=== PATIENT | female | born 1950 | race Hispanic/Latino ===

== ENCOUNTER 2017-03-17 15:14 | Inpatient (IN) | payer MEDICARE ==
[~2017-03-17] VITALS: Ht 152.4 cm; Wt 129.3 kg
[~2017-03-17 15:14] MED LIST: AMLO10TA2 PO; GLIM2TAB3 PO; LORA-705 PO; METH250T11 PO; METO50TA18 PO; MU-V1TAB28 PO; PANT40TA25 PO; PROM5SYR PO; SIME80TA12 PO; SITA1TAB2 PO
[2017-03-17 15:47] LABS: ABG BASE EXCESS 3.1 mmol/L (-2.0-3.0); ABG HCO3 34.9 mmol/L (21.0-28.0); ABG OXYGEN SATURATION 87.6 % (95.0-99.0); ABG PCO2 94 mmHg (32-45)
[2017-03-17] MEDS ORDERED: AZITHROMYCIN 500MG+NS 250ML 250 ML IV ONE (15:54)
[2017-03-17] MEDS ORDERED: CEFTRIAXONE SODIUM 1 GM ONE (15:55)
[2017-03-17 15:57] LABS: BASOPHILS % (AUTO) 0.3 % (0.0-5.0); EOSINOPHILS % (AUTO) 1.3 % (0.0-8.0); HEMATOCRIT 42.7 % (36-48); LYMPHOCYTES % (AUTO) 9.3 % (21.0-51.0); MEAN CORPUSCULAR HEMOGLOBIN 29.2 pg (27.0-33.0); MEAN CORPUSCULAR HGB CONC 32.2 g/dL (32.0-36.0); MEAN CORPUSCULAR VOLUME 90.7 fL (79-99); MONOCYTES % (AUTO) 7.5 % (3.0-13.0); NEUTROPHILS % (AUTO) 81.6 % (40.0-77.0); NUCLEATED RED BLOOD CELLS 0.1 % (0.0-0.19); PLATELET COUNT (AUTO) 310 K/uL (130-400); RED BLOOD CELL COUNT(AUTO) 4.71 MIL/uL (4.00-5.50); WHITE BLOOD COUNT (AUTO) 13.6 K/uL (4.8-10.8)
[2017-03-17] MEDS ORDERED: IPRATROPIUM/ALBUTEROL SULFATE 3 ML SOLUTION IH ONE (16:05)
[2017-03-17 16:14] LABS: CREATININE 0.9 mg/dL (0.5-1.5); POTASSIUM 5.2 mmol/L (3.5-5.1)
[2017-03-17 16:41] LABS: ALBUMIN 3.2 g/dL (3.5-5.0); BILIRUBIN,TOTAL 0.3 mg/dL (0.2-1.0); CREATINE KINASE MB 3.6 ng/mL (0.5-3.6); TOTAL PROTEIN, SERUM 8.7 g/dL (6.0-8.3)
[2017-03-17 16:53] LABS: ABG BASE EXCESS 0.8 mmol/L (-2.0-3.0); ABG OXYGEN SATURATION 91.3 % (95.0-99.0); ABG PCO2 88 mmHg (32-45)
[2017-03-17] MEDS ORDERED: IOPAMIDOL-370 75 ML VIAL IV ONE (18:52)
[2017-03-18] MEDS ORDERED: CEFTRIAXONE 1GM/D5W 50ML 50 ML IV SCH (01:45)
[2017-03-18] MEDS ORDERED: HYDRALAZINE HCL 20 MG/ML VIAL IV PRN (01:45)
[2017-03-18 03:06] LABS: BILIRUBIN,URINE Negative (NEGATIVE); COLOR,URINE Yellow (YELLOW); GLUCOSE, URINE (UA) Negative (NEGATIVE); KETONES,URINE Negative (NEGATIVE); LEUKOCYTE ESTERASE ,URINE Negative (NEGATIVE); NITRATE,URINE Negative (NEGATIVE); OCCULT BLOOD,URINE Negative (NEGATIVE); PROTEIN,URINE Trace (NEGATIVE)
[2017-03-18 03:21] LABS: APPEARANCE,URINE CLEAR (CLEAR)
[2017-03-18 03:30] LABS: AMORPHOUS SEDIMENT,UR Rare /LPF (None Seen); BACTERIA,URINE None Seen /HPF (None Seen); RBC,URINE None Seen /HPF (0-1); SQUAMOUS EPITHELIAL CELL,UR Rare /LPF (0-2); WBC,URINE None Seen /HPF (0-1)
[2017-03-18 04:22] LABS: ABG BASE EXCESS 4.6 mmol/L (-2.0-3.0); ABG HCO3 36.9 mmol/L (21.0-28.0); ABG OXYGEN SATURATION 88.6 % (95.0-99.0); ABG PCO2 101 mmHg (32-45)
[2017-03-18] MEDS ORDERED: FUROSEMIDE 10 MG/ML 4ML VIAL ONE (05:07)
[2017-03-18] MEDS ORDERED: IPRATROPIUM/ALBUTEROL SULFATE 3 ML SOLUTION IH ONE ×2 (06:03→12:05)
[2017-03-18] MEDS: IPRATROPIUM/ALBUTEROL SULFATE 3 ML SOLUTION IH SCH ×3 (06:18→19:42)
[2017-03-18 07:33] LABS: HEMATOCRIT 40.9 % (36-48); MEAN CORPUSCULAR HGB CONC 31.9 g/dL (32.0-36.0); NUCLEATED RED BLOOD CELLS 0.1 % (0.0-0.19); PLATELET COUNT (AUTO) 278 K/uL (130-400); RED BLOOD CELL COUNT(AUTO) 4.49 MIL/uL (4.00-5.50); RED CELL DISTRIBUTION WIDTH 15.1 % (11.0-15.5); WHITE BLOOD COUNT (AUTO) 12.8 K/uL (4.8-10.8)
[2017-03-18 07:45] LABS: CREATININE 0.7 mg/dL (0.5-1.5); MAGNESIUM 1.5 mg/dL (1.80-2.40); POTASSIUM 5.2 mmol/L (3.5-5.1)
[2017-03-18 08:15] LABS: B-TYPE NATRIURETIC PEPTIDE 227 pg/mL (0-100)
[2017-03-18] MEDS ORDERED: ENOXAPARIN SODIUM 40 MG/0.4 ML SYRINGE SQ ONE (10:46)
[2017-03-18] MEDS ORDERED: FAMOTIDINE/PF 20 MG/2 ML VIAL IV ONE (10:47)
[2017-03-18 11:55] LABS: ABG HCO3 39.1 mmol/L (21.0-28.0); ABG OXYGEN SATURATION 88.4 % (95.0-99.0); ABG PCO2 81 mmHg (32-45)
[2017-03-18 16:00] VITALS: BP 162/83
[2017-03-18] MEDS: AZITHROMYCIN 500MG+NS 250ML 250 ML IV SCH ×2 (17:01→21:27)
[2017-03-18] MEDS: FUROSEMIDE 10 MG/ML 4ML VIAL IVP SCH ×2 (17:02→21:29)
[2017-03-18] MEDS: FUROSEMIDE 10 MG/ML 4ML VIAL IV SCH (17:02)
[2017-03-18] MEDS: ENOXAPARIN SODIUM 40 MG/0.4 ML SYRINGE SQ SCH (17:02)
[2017-03-18] MEDS: FAMOTIDINE/PF 20 MG/2 ML VIAL IV SCH ×2 (17:02→21:29)
[2017-03-18] MEDS ORDERED: HYDR12.530 PO (17:23)
[2017-03-18] MEDS ORDERED: OMEP40CA37 PO (17:23)
[2017-03-18] MEDS ORDERED: ASPI-555 PO (17:23)
[2017-03-18] MEDS ORDERED: LINA1TAB5 PO (17:23)
[2017-03-18] MEDS ORDERED: ROSU10TA35 PO (17:23)
[2017-03-18] MEDS ORDERED: CALC-911 PO (17:23)
[2017-03-18] MEDS ORDERED: LISI-617 PO (17:23)
[2017-03-18] MEDS ORDERED: GLIM2TAB3 PO (17:23)
[2017-03-18] MEDS ORDERED: MELO-106 PO (17:23)
[2017-03-18] MEDS ORDERED: CHOL200012 PO (17:23)
[2017-03-18] MEDS ORDERED: LORA10TA7 PO (17:23)
[2017-03-18] MEDS: METHYLPREDNISOLONE SOD SUCC 40MG/ML 1ML IVP SCH (17:40)
[2017-03-18 19:00] VITALS: BP 132/66
[2017-03-18] MEDS: INSULIN R PO SS1 SQ SCH (20:33)
[2017-03-18] MEDS ORDERED: SODIUM CHLORIDE 0.9% 250 ML IV ONE (21:00)
[2017-03-18] MEDS: CEFTRIAXONE SODIUM 1 GM IVP SCH (21:27)
[2017-03-18 23:00] VITALS: BP 129/60
[2017-03-19] MEDS: METHYLPREDNISOLONE SOD SUCC 40MG/ML 1ML IVP SCH ×3 (00:48→16:56)
[2017-03-19] MEDS: IPRATROPIUM/ALBUTEROL SULFATE 3 ML SOLUTION IH SCH ×4 (01:04→18:33)
[2017-03-19 03:00] VITALS: BP 128/72
[2017-03-19 04:20] LABS: ABG BASE EXCESS 7.2 mmol/L (-2.0-3.0); ABG OXYGEN SATURATION 92.6 % (95.0-99.0); ABG PCO2 70 mmHg (32-45)
[2017-03-19] MEDS: FUROSEMIDE 10 MG/ML 4ML VIAL IV SCH (05:15)
[2017-03-19] MEDS: INSULIN R PO SS1 SQ SCH ×4 (06:16→21:56)
[2017-03-19 07:43] VITALS: BP 134/65
[2017-03-19] MEDS: FUROSEMIDE 10 MG/ML 4ML VIAL IVP SCH ×2 (09:48→22:02)
[2017-03-19] MEDS: ENOXAPARIN SODIUM 40 MG/0.4 ML SYRINGE SQ SCH (09:48)
[2017-03-19] MEDS: FAMOTIDINE/PF 20 MG/2 ML VIAL IV SCH ×2 (09:48→22:00)
[2017-03-19] MEDS ORDERED: DIPHENHYDRAMINE HCL 25 MG CAPSULE PO PRN (11:15)
[2017-03-19 11:39] VITALS: BP 143/71
[2017-03-19] MEDS: ONDANSETRON HCL 4 MG/2 ML VIAL IV PRN (14:01)
[2017-03-19] MEDS ORDERED: GUAIFENESIN 600 MG TABLET.ER PO SCH (14:45)
[2017-03-19] MEDS: GUAIFENESIN SUGAR-FREE 100 MG/5 ML UDCUP PO PRN (15:42)
[2017-03-19 16:29] VITALS: BP 147/63
[2017-03-19 19:00] VITALS: BP 174/73
[2017-03-19] MEDS: CEFTRIAXONE SODIUM 1 GM IVP SCH (22:03)
[2017-03-19] MEDS: AZITHROMYCIN 500MG+NS 250ML 250 ML IV SCH (22:09)
[2017-03-19 23:00] VITALS: BP 154/65
[2017-03-20] MEDS: METHYLPREDNISOLONE SOD SUCC 40MG/ML 1ML IVP SCH ×3 (00:36→16:33)
[2017-03-20] MEDS: IPRATROPIUM/ALBUTEROL SULFATE 3 ML SOLUTION IH SCH ×5 (00:49→23:03)
[2017-03-20 03:00] VITALS: BP 152/69
[2017-03-20 04:02] LABS: BASOPHILS % (AUTO) 0.2 % (0.0-5.0); HEMATOCRIT 42.1 % (36-48); MEAN CORPUSCULAR HGB CONC 32.3 g/dL (32.0-36.0); MEAN CORPUSCULAR VOLUME 90.1 fL (79-99); MONOCYTES % (AUTO) 2.7 % (3.0-13.0); NEUTROPHILS % (AUTO) 95.1 % (40.0-77.0); PLATELET COUNT (AUTO) 332 K/uL (130-400); RED BLOOD CELL COUNT(AUTO) 4.68 MIL/uL (4.00-5.50); RED CELL DISTRIBUTION WIDTH 14.8 % (11.0-15.5); WHITE BLOOD COUNT (AUTO) 11.2 K/uL (4.8-10.8)
[2017-03-20 04:27] LABS: CREATININE 0.8 mg/dL (0.5-1.5); POTASSIUM 4.2 mmol/L (3.5-5.1)
[2017-03-20] MEDS: FUROSEMIDE 10 MG/ML 4ML VIAL IV SCH (05:15)
[2017-03-20] MEDS: INSULIN R PO SS1 SQ SCH ×4 (06:25→22:30)
[2017-03-20 07:00] VITALS: BP 145/70
[2017-03-20] MEDS: FUROSEMIDE 10 MG/ML 4ML VIAL IVP SCH ×2 (07:49→21:25)
[2017-03-20] MEDS: ONDANSETRON HCL 4 MG/2 ML VIAL IV PRN ×2 (07:49→21:37)
[2017-03-20] MEDS: FAMOTIDINE/PF 20 MG/2 ML VIAL IV SCH ×2 (07:49→21:25)
[2017-03-20] MEDS: ENOXAPARIN SODIUM 40 MG/0.4 ML SYRINGE SQ SCH (07:53)
[2017-03-20 08:22] LABS: ABG BASE EXCESS 20.6 mmol/L (-2.0-3.0); ABG HCO3 50.9 mmol/L (21.0-28.0); ABG OXYGEN SATURATION 91.6 % (95.0-99.0); ABG PCO2 84 mmHg (32-45)
[2017-03-20] MEDS: GUAIFENESIN SUGAR-FREE 100 MG/5 ML UDCUP PO PRN (09:44)
[2017-03-20 11:00] VITALS: BP 126/60
[2017-03-20] MEDS ORDERED: LORATADINE 10 MG TABLET PO PRN (14:30)
[2017-03-20] MEDS ORDERED: MELOXICAM 7.5 MG TABLET PO PRN (14:30)
[2017-03-20] MEDS: GLIMEPIRIDE 2 MG TABLET PO SCH (16:33)
[2017-03-20 16:38] VITALS: BP 129/65
[2017-03-20 19:20] VITALS: BP 139/66
[2017-03-20] MEDS: CEFTRIAXONE SODIUM 1 GM IVP SCH (21:24)
[2017-03-20] MEDS: METOPROLOL TARTRATE 50 MG TAB PO SCH (21:25)
[2017-03-20] MEDS: AZITHROMYCIN 500MG+NS 250ML 250 ML IV SCH (21:27)
[2017-03-21] VITALS (7 sets, daily range): BP systolic 104–135; BP diastolic 49–69
[2017-03-21] MEDS: METHYLPREDNISOLONE SOD SUCC 40MG/ML 1ML IVP SCH ×2 (01:11→07:59)
[2017-03-21] MEDS: FUROSEMIDE 10 MG/ML 4ML VIAL IV SCH ×2 (05:14→21:13)
[2017-03-21] MEDS: IPRATROPIUM/ALBUTEROL SULFATE 3 ML SOLUTION IH SCH ×4 (06:03→23:27)
[2017-03-21] MEDS: INSULIN R PO SS1 SQ SCH ×4 (06:04→21:06)
[2017-03-21] MEDS: ENOXAPARIN SODIUM 40 MG/0.4 ML SYRINGE SQ SCH (07:59)
[2017-03-21] MEDS: PANTOPRAZOLE SODIUM 40 MG TABLET.DR PO SCH (07:59)
[2017-03-21] MEDS: FUROSEMIDE 10 MG/ML 4ML VIAL IVP SCH ×2 (07:59→21:00)
[2017-03-21] MEDS: LISINOPRIL 5 MG TABLET PO SCH (07:59)
[2017-03-21] MEDS: HYDROCHLOROTHIAZIDE 25 MG TABLET PO SCH (07:59)
[2017-03-21] MEDS: ATORVASTATIN CALCIUM 10 MG TABLET PO SCH (07:59)
[2017-03-21] MEDS: ASPIRIN 81 MG EC TAB PO SCH (07:59)
[2017-03-21] MEDS: AMLODIPINE BESYLATE 5 MG TAB PO SCH (08:00)
[2017-03-21] MEDS: METOPROLOL TARTRATE 50 MG TAB PO SCH ×2 (08:00→21:03)
[2017-03-21] MEDS: GLIMEPIRIDE 2 MG TABLET PO SCH ×3 (08:00→16:33)
[2017-03-21] MEDS: FAMOTIDINE/PF 20 MG/2 ML VIAL IV SCH ×2 (08:00→21:00)
[2017-03-21] MEDS: CEFTRIAXONE SODIUM 1 GM IVP SCH (20:59)
[2017-03-21] MEDS: AZITHROMYCIN 500MG+NS 250ML 250 ML IV SCH (21:03)
[2017-03-22 03:21] VITALS: BP 111/59
[2017-03-22 03:42] LABS: HEMATOCRIT 43.2 % (36-48); MEAN CORPUSCULAR HEMOGLOBIN 28.6 pg (27.0-33.0); MEAN CORPUSCULAR HGB CONC 32.1 g/dL (32.0-36.0); MEAN CORPUSCULAR VOLUME 89.2 fL (79-99); PLATELET COUNT (AUTO) 312 K/uL (130-400); RED BLOOD CELL COUNT(AUTO) 4.84 MIL/uL (4.00-5.50); RED CELL DISTRIBUTION WIDTH 14.5 % (11.0-15.5); WHITE BLOOD COUNT (AUTO) 13.1 K/uL (4.8-10.8)
[2017-03-22] MEDS: INSULIN R PO SS1 SQ SCH ×4 (05:51→20:47)
[2017-03-22] MEDS: IPRATROPIUM/ALBUTEROL SULFATE 3 ML SOLUTION IH SCH ×3 (05:54→17:52)
[2017-03-22 07:30] VITALS: BP 122/65
[2017-03-22] MEDS: LISINOPRIL 5 MG TABLET PO SCH (07:50)
[2017-03-22] MEDS: AMLODIPINE BESYLATE 5 MG TAB PO SCH (07:50)
[2017-03-22] MEDS: METOPROLOL TARTRATE 50 MG TAB PO SCH ×2 (07:50→20:28)
[2017-03-22] MEDS: ASPIRIN 81 MG EC TAB PO SCH (07:51)
[2017-03-22] MEDS: HYDROCHLOROTHIAZIDE 25 MG TABLET PO SCH (07:51)
[2017-03-22] MEDS: PANTOPRAZOLE SODIUM 40 MG TABLET.DR PO SCH (07:51)
[2017-03-22] MEDS: GLIMEPIRIDE 2 MG TABLET PO SCH ×3 (07:51→16:44)
[2017-03-22] MEDS: ATORVASTATIN CALCIUM 10 MG TABLET PO SCH (07:51)
[2017-03-22] MEDS: METHYLPREDNISOLONE SOD SUCC 40MG/ML 1ML IVP SCH (07:52)
[2017-03-22] MEDS: FUROSEMIDE 10 MG/ML 4ML VIAL IVP SCH ×2 (07:53→20:28)
[2017-03-22] MEDS: ENOXAPARIN SODIUM 40 MG/0.4 ML SYRINGE SQ SCH (07:54)
[2017-03-22] MEDS: FAMOTIDINE/PF 20 MG/2 ML VIAL IV SCH ×2 (07:54→20:28)
[2017-03-22 11:22] VITALS: BP 113/71
[2017-03-22 15:57] VITALS: BP 126/80
[2017-03-22 19:15] VITALS: BP 127/55
[2017-03-22] MEDS: CEFTRIAXONE SODIUM 1 GM IVP SCH (20:27)
[2017-03-22] MEDS: FUROSEMIDE 10 MG/ML 4ML VIAL IV SCH (20:28)
[2017-03-22] MEDS: APIXABAN 5 MG TABLET PO SCH (20:28)
[2017-03-22] MEDS: AZITHROMYCIN 500MG+NS 250ML 250 ML IV SCH (20:42)
[2017-03-22 23:15] VITALS: BP 124/61
[2017-03-23] MEDS: IPRATROPIUM/ALBUTEROL SULFATE 3 ML SOLUTION IH SCH ×4 (00:34→18:34)
[2017-03-23 03:31] VITALS: BP 120/71
[2017-03-23] MEDS: INSULIN R PO SS1 SQ SCH ×3 (06:40→17:11)
[2017-03-23 08:11] VITALS: BP 130/60
[2017-03-23] MEDS: FAMOTIDINE/PF 20 MG/2 ML VIAL IV SCH (09:00)
[2017-03-23] MEDS: GLIMEPIRIDE 2 MG TABLET PO SCH ×3 (09:15→17:10)
[2017-03-23] MEDS: ASPIRIN 81 MG EC TAB PO SCH (09:15)
[2017-03-23] MEDS: HYDROCHLOROTHIAZIDE 25 MG TABLET PO SCH (09:15)
[2017-03-23] MEDS: PANTOPRAZOLE SODIUM 40 MG TABLET.DR PO SCH (09:15)
[2017-03-23] MEDS: APIXABAN 5 MG TABLET PO SCH (09:15)
[2017-03-23] MEDS: METHYLPREDNISOLONE SOD SUCC 40MG/ML 1ML IVP SCH (09:15)
[2017-03-23] MEDS: LISINOPRIL 5 MG TABLET PO SCH (09:15)
[2017-03-23] MEDS: ATORVASTATIN CALCIUM 10 MG TABLET PO SCH (09:15)
[2017-03-23] MEDS: FUROSEMIDE 10 MG/ML 4ML VIAL IVP SCH (09:16)
[2017-03-23] MEDS: AMLODIPINE BESYLATE 5 MG TAB PO SCH (09:18)
[2017-03-23] MEDS: METOPROLOL TARTRATE 50 MG TAB PO SCH (09:18)
[2017-03-23 11:30] VITALS: BP 128/78
[2017-03-23 15:28] LABS: ABG BASE EXCESS 12.6 mmol/L (-2.0-3.0); ABG HCO3 37.2 mmol/L (21.0-28.0); ABG OXYGEN SATURATION 94.5 % (95.0-99.0); ABG PCO2 47 mmHg (32-45)
[2017-03-23 16:00] VITALS: BP 121/61
[2017-03-23] MEDS ORDERED: AZITHROMYCIN 250 MG TABLET PO SCH (21:00)
[2017-03-24] MEDS ORDERED: FUROSEMIDE 40 MG TABLET PO SCH (09:00)
[2017-07-05] MEDS ORDERED: GABA-531 PO (16:57)
[2017-07-05] MEDS ORDERED: FURO40TA5 PO (16:57)
[2017-07-05] MEDS ORDERED: D-ME118S47 PO (16:57)
[2017-07-05] MEDS ORDERED: FLUT1DIS IH (16:57)
[2017-08-17] MEDS ORDERED: ASPI-1181 PO (09:41)
[2017-08-17] MEDS ORDERED: DRON400T2 PO (09:42)
[2017-08-17] MEDS ORDERED: DIGO125T87 PO (09:42)
[2017-08-17] MEDS ORDERED: FURO40TA5 PO (09:42)
[2017-08-17] MEDS ORDERED: APIX5TAB PO (09:42)
[2017-08-17] MEDS ORDERED: METO100T14 PO (09:42)
== END 2017-03-23 19:00 | disposition home or self-care (01) | DRG 871 ==
LOC: EDH 15:14 → EDHIP 03-18 01:31 → 2DH 03-18 16:01
PROVIDERS: ADMIT Family Medicine; ATTEND Family Medicine
PROC: 5A09357 Assistance with Respiratory Ventilation, Less than 24 Consecutive Hours, Continuous Positive Airway Pressure (ICD-10-PCS; principal; 2017-03-18)
PROC: 5A09357 Assistance with Respiratory Ventilation, Less than 24 Consecutive Hours, Continuous Positive Airway Pressure (ICD-10-PCS; 2017-03-18)
PROC: 5A09357 Assistance with Respiratory Ventilation, Less than 24 Consecutive Hours, Continuous Positive Airway Pressure (ICD-10-PCS; 2017-03-18)
DX: A41.9 Sepsis, unspecified organism (principal); J18.9 Pneumonia, unspecified organism; J96.21 Acute and chronic respiratory failure with hypoxia; I11.0 Hypertensive heart disease with heart failure; E87.2 Acidosis; I50.9 Heart failure, unspecified; J96.22 Acute and chronic respiratory failure with hypercapnia; E66.2 Morbid (severe) obesity with alveolar hypoventilation; J44.0 Chronic obstructive pulmonary disease with (acute) lower respiratory infection; Z68.43 Body mass index [BMI] 50.0-59.9, adult; E11.9 Type 2 diabetes mellitus without complications; E78.5 Hyperlipidemia, unspecified; I25.10 Atherosclerotic heart disease of native coronary artery without angina pectoris
CPT/HCPCS: 36415; 36600; 71045; 71270; 80048; 80053; 81001; 82330; 82435; 82550; 82553; 82803; 82947; 82948; 83605; 83735; 83880; 84132; 84295; 84484; 85018; 85025; 85027; 87040; 93005; 93306; 94640; 94660; 94760; 99291; A4218; J0456; J0696; J1650; J1815; J1940; J2405; J2920; J3490; J7030; Q0163; Q9967

== ENCOUNTER → 2017-08-03 | Outpatient (CLI) | payer MEDICARE ==
[~2017-08-03] MED LIST changes: +APIX5TAB PO; +ASPI-1181 PO; +ASPI-555 PO; +CALC-911 PO; +CHOL200012 PO; +D-ME118S47 PO; +DIGO125T87 PO; +DRON400T2 PO; +FLUT1DIS IH; +FURO40TA5 PO; +GABA-531 PO; +HYDR12.530 PO; +LINA1TAB5 PO; -LORA-705 PO; -METH250T11 PO; +METH250T3 PO; +METO100T14 PO; -METO50TA18 PO; -MU-V1TAB28 PO; +OMEP40CA37 PO; -PANT40TA25 PO; -PROM5SYR PO; +ROSU10TA27 PO; -SIME80TA12 PO; -SITA1TAB2 PO
== END | disposition home or self-care (01) ==
LOC: OIH 15:28
PROVIDERS: ATTEND Internal Medicine Cardiovascular Disease
DX: R07.9 Chest pain, unspecified (principal); I48.0 Paroxysmal atrial fibrillation
CPT/HCPCS: 71046

== ENCOUNTER 2018-06-25 21:18 | Inpatient (IN) | payer MEDICARE ==
[~2018-06-25] VITALS: Ht 157.5 cm; Wt 113.9 kg
[~2018-06-25 21:18] MED LIST changes: -AMLO10TA2 PO; +AMLO10TA7 PO; -ASPI-555 PO; -CALC-911 PO; -D-ME118S47 PO; -FLUT1DIS IH; -ROSU10TA27 PO
[2018-06-25] MEDS ORDERED: ASPIRIN 325 MG TABLET ONE (22:11)
[2018-06-25] MEDS ORDERED: FUROSEMIDE 10 MG/ML 4ML VIAL ONE (22:11)
[2018-06-25 22:36] LABS: ABG HCO3 23.4 mmol/L (21.0-28.0); ABG PCO2 35 mmHg (32-45)
[2018-06-25 22:41] LABS: BASOPHILS % (AUTO) 0.8 % (0.0-5.0); EOSINOPHILS % (AUTO) 1.8 % (0.0-8.0); LYMPHOCYTES % (AUTO) 13.7 % (21.0-51.0); MEAN CORPUSCULAR HEMOGLOBIN 30.9 pg (27.0-33.0); MEAN CORPUSCULAR HGB CONC 34.3 g/dL (32.0-36.0); MEAN CORPUSCULAR VOLUME 90.1 fL (79-99); MONOCYTES % (AUTO) 9.7 % (3.0-13.0); PLATELET COUNT (AUTO) 254 K/uL (130-400); RED BLOOD CELL COUNT(AUTO) 3.88 MIL/uL (4.00-5.50); RED CELL DISTRIBUTION WIDTH 13.6 % (11.0-15.5)
[2018-06-25 22:56] LABS: POTASSIUM 3.5 mmol/L (3.5-5.1)
[2018-06-25 22:58] LABS: INR 0.96 (0.85-1.15); PROTHROMBIN TIME 10.1 SEC (9.6-11.6)
[2018-06-25 23:02] LABS: B-TYPE NATRIURETIC PEPTIDE 132 pg/mL (0-100)
[2018-06-25 23:07] LABS: ALBUMIN 3.6 g/dL (3.5-5.0); BILIRUBIN,TOTAL 0.3 mg/dL (0.2-1.0); TOTAL PROTEIN, SERUM 7.3 g/dL (6.0-8.3)
[2018-06-25] MEDS ORDERED: ZOSYN 3.375GM+NS 50ML 50 ML IV ONE (23:11)
[2018-06-25] MEDS ORDERED: OSELTAMIVIR PHOSPHATE 75 MG CAP ONE (23:12)
[2018-06-25] MEDS ORDERED: IOHEXOL 350 MG/ML 100ML INFUS..BTL IV ONE (23:12)
[2018-06-25 23:20] LABS: APPEARANCE,URINE Clear (CLEAR); BILIRUBIN,URINE Negative (NEGATIVE); COLOR,URINE Yellow (YELLOW); GLUCOSE, URINE (UA) Negative (NEGATIVE); KETONES,URINE Trace mg/dL (NEGATIVE); LEUKOCYTE ESTERASE ,URINE Trace (NEGATIVE); NITRATE,URINE Negative (NEGATIVE); OCCULT BLOOD,URINE Negative (NEGATIVE); PH,URINE 6.5 (5.0-8.0); PROTEIN,URINE Negative (NEGATIVE)
[2018-06-25 23:43] LABS: RBC,URINE 0-1 /HPF (0-1)
[2018-06-25 23:44] LABS: BACTERIA,URINE Rare /HPF (None Seen); SQUAMOUS EPITHELIAL CELL,UR 0-2 /HPF (0-2)
[2018-06-26] VITALS (13 sets, daily range): BP systolic 117–139; BP diastolic 51–71
[2018-06-26] MEDS ORDERED: METHYLPREDNISOLONE SOD SUCC 40MG/ML 1ML ONE (04:13)
[2018-06-26] MEDS ORDERED: ENOXAPARIN SODIUM 40 MG/0.4 ML SYRINGE SQ ONE (04:14)
[2018-06-26 05:43] LABS: BASOPHILS % (AUTO) 0.7 % (0.0-5.0); EOSINOPHILS % (AUTO) 1.6 % (0.0-8.0); LYMPHOCYTES % (AUTO) 12.2 % (21.0-51.0); MEAN CORPUSCULAR HEMOGLOBIN 31.5 pg (27.0-33.0); MEAN CORPUSCULAR HGB CONC 34.9 g/dL (32.0-36.0); MEAN CORPUSCULAR VOLUME 90.3 fL (79-99); MONOCYTES % (AUTO) 6.1 % (3.0-13.0); NEUTROPHILS % (AUTO) 79.4 % (40.0-77.0); PLATELET COUNT (AUTO) 235 K/uL (130-400); RED BLOOD CELL COUNT(AUTO) 3.88 MIL/uL (4.00-5.50); RED CELL DISTRIBUTION WIDTH 13.4 % (11.0-15.5); WHITE BLOOD COUNT (AUTO) 7.6 K/uL (4.8-10.8)
[2018-06-26 06:00] LABS: CREATININE 0.8 mg/dL (0.5-1.5); MAGNESIUM 1.2 mg/dL (1.80-2.40); POTASSIUM 3.3 mmol/L (3.5-5.1)
[2018-06-26] MEDS ORDERED: LISI2.5T2 PO (09:31)
[2018-06-26] MEDS ORDERED: SPIR50TA5 PO (09:31)
[2018-06-26] MEDS ORDERED: ALEN70TA10 PO (09:31)
[2018-06-26] MEDS ORDERED: PREG75 PO (09:31)
[2018-06-26] MEDS ORDERED: MAGNESIUM 2GM PREMIX 50ML 100 ML IV ONE (10:17)
[2018-06-26] MEDS ORDERED: MAGNESIUM 4GM PREMIX 100ML 100 ML IV SCH (10:45)
[2018-06-26] MEDS ORDERED: POTASSIUM CHLORIDE 10% ELIXIR 20 MEQ/15 ML UDCUP PO PRN (12:15)
[2018-06-26] MEDS ORDERED: POTASSIUM CHLORIDE 20MEQ/100ML 100 ML IV PRN (12:15)
[2018-06-26] MEDS ORDERED: LIDOCAINE HCL-MPF 1% 2ML VIAL IVP PRN (12:15)
[2018-06-26] MEDS ORDERED: ONDANSETRON HCL 4 MG/2 ML VIAL IVP PRN (13:00)
[2018-06-26] MEDS ORDERED: ZOSYN 3.375GM+NS 50ML 50 ML IV SCH (13:00)
[2018-06-26] MEDS ORDERED: ACETAMINOPHEN 325 MG TAB PO PRN (13:00)
[2018-06-26] MEDS ORDERED: POTASSIUM CHLORIDE 20 MEQ ERTAB PO ONE ×2 (14:05→16:18)
[2018-06-26] MEDS ORDERED: ZOSYN 3.375GM+NS 50ML 50 ML IV ONE (14:05)
[2018-06-26] MEDS: POTASSIUM CHLORIDE 20 MEQ ERTAB PO PRN ×3 (14:10→18:06)
[2018-06-26 15:06] LABS: CREATINE KINASE, TOTAL 198 U/L (21-232); MYOGLOBIN 42 ng/mL (10-92); TROPONIN I < 0.04 ng/mL (0.00-0.06)
[2018-06-26] MEDS ORDERED: INSULIN HUMULIN R 100 UNIT/ML 3ML ONE (16:34)
[2018-06-26] MEDS: INSULIN HUMULIN R 100 UNIT/ML 3ML SQ SCH ×2 (16:37→21:54)
[2018-06-26] MEDS: IPRATROPIUM/ALBUTEROL SULFATE 3 ML SOLUTION IH SCH ×2 (16:37→23:57)
[2018-06-26] MEDS: APIXABAN 5 MG TABLET PO SCH (17:43)
[2018-06-26] MEDS: FUROSEMIDE 10 MG/ML 2ML VIAL IV SCH (17:44)
[2018-06-26] MEDS ORDERED: DiphenhydrAMINE HCL 50 MG/ML VIAL IV STA (19:01)
[2018-06-26] MEDS ORDERED: DiphenhydrAMINE HCL 50 MG/ML VIAL IV PRN (19:15)
[2018-06-26] MEDS ORDERED: METHYLPREDNISOLONE SOD SUCC 40MG/ML 1ML IVP SCH (21:00)
[2018-06-26] MEDS: OSELTAMIVIR PHOSPHATE 75 MG CAP PO SCH (21:58)
[2018-06-26] MEDS: LISINOPRIL 2.5 MG TABLET PO SCH (21:58)
[2018-06-26] MEDS: METOPROLOL TARTRATE 25 MG TAB PO SCH (21:58)
[2018-06-26 23:02] LABS: CREATINE KINASE, TOTAL 158 U/L (21-232); MYOGLOBIN 38 ng/mL (10-92); TROPONIN I < 0.04 ng/mL (0.00-0.06)
[2018-06-27 03:00] VITALS: BP 112/49
[2018-06-27 03:59] LABS: ABG BASE EXCESS 4.5 mmol/L (-2.0-3.0); ABG HCO3 30.6 mmol/L (21.0-28.0); ABG OXYGEN SATURATION 98.9 % (95.0-99.0); ABG PCO2 51 mmHg (32-45)
[2018-06-27 04:38] LABS: BASOPHILS % (AUTO) 0.4 % (0.0-5.0); HEMATOCRIT 36.2 % (36-48); LYMPHOCYTES % (AUTO) 4.7 % (21.0-51.0); MEAN CORPUSCULAR HEMOGLOBIN 31.1 pg (27.0-33.0); MEAN CORPUSCULAR HGB CONC 34.2 g/dL (32.0-36.0); MONOCYTES % (AUTO) 2.3 % (3.0-13.0); NEUTROPHILS % (AUTO) 92.6 % (40.0-77.0); PLATELET COUNT (AUTO) 265 K/uL (130-400); RED BLOOD CELL COUNT(AUTO) 3.97 MIL/uL (4.00-5.50); RED CELL DISTRIBUTION WIDTH 13.9 % (11.0-15.5); WHITE BLOOD COUNT (AUTO) 11.3 K/uL (4.8-10.8)
[2018-06-27 05:01] LABS: B-TYPE NATRIURETIC PEPTIDE 307 pg/mL (0-100)
[2018-06-27 05:08] LABS: CARBON DIOXIDE 30 mmol/L (21-32); CHLORIDE 98 mmol/L (101-111); CREATINE KINASE, TOTAL 161 U/L (21-232); CREATININE 0.7 mg/dL (0.5-1.5); GLOMERULAR FILTR. RATE CALC 88 mL/min (>60); GLUCOSE,RANDOM 340 mg/dL (70-105); MYOGLOBIN 39 ng/mL (10-92); PHOSPHORUS 3.7 mg/dL (2.5-4.9); POTASSIUM 5.1 mmol/L (3.5-5.1); SODIUM SERUM 135 mmol/L (136-145); TROPONIN I < 0.04 ng/mL (0.00-0.06); UREA NITROGEN, BLOOD 9 mg/dL (7-18)
[2018-06-27] MEDS: APIXABAN 5 MG TABLET PO SCH ×2 (05:18→17:13)
[2018-06-27] MEDS: FUROSEMIDE 10 MG/ML 2ML VIAL IV SCH ×2 (05:19→17:13)
[2018-06-27] MEDS: IPRATROPIUM/ALBUTEROL SULFATE 3 ML SOLUTION IH SCH ×4 (06:49→23:45)
[2018-06-27] MEDS: INSULIN HUMULIN R 100 UNIT/ML 3ML SQ SCH ×4 (06:54→22:21)
--- NOTE | 2018-06-27 06:54 | NUR ---
O2 assessment: Pt on bopap w/4L bled in Addendum: 06/27/18 at 0659 by SUZI LARSEN RT Amended: Links added.
[2018-06-27 07:18] VITALS: BP 126/60
--- NOTE | 2018-06-27 07:25 | NUR ---
Pt. remained stable,no itching or scratching episode noted the whole remainder of my shift,asleep well through the night.Bedside report given to incoming NOD using SBAR,all questions answered.
[2018-06-27] MEDS ORDERED: ENOXAPARIN SODIUM 40 MG/0.4 ML SYRINGE SQ SCH (09:00)
[2018-06-27] MEDS ORDERED: METHYLPREDNISOLONE SOD SUCC 40MG/ML 1ML IVP SCH (09:00)
[2018-06-27] MEDS ORDERED: LEVOFLOXACIN 500 MG/D5W 100 ML 100 ML IV SCH (09:00)
[2018-06-27] MEDS: OSELTAMIVIR PHOSPHATE 75 MG CAP PO SCH ×2 (10:52→21:38)
[2018-06-27] MEDS: SPIRONOLACTONE 25 MG TAB PO SCH (10:52)
[2018-06-27] MEDS: LISINOPRIL 2.5 MG TABLET PO SCH ×2 (10:53→21:37)
[2018-06-27] MEDS: HYDROCHLOROTHIAZIDE 25 MG TABLET PO SCH (10:53)
[2018-06-27] MEDS: PANTOPRAZOLE SODIUM 40 MG TABLET.DR PO SCH (10:53)
[2018-06-27] MEDS: AMLODIPINE BESYLATE 5 MG TAB PO SCH (10:53)
[2018-06-27] MEDS: METOPROLOL TARTRATE 25 MG TAB PO SCH ×2 (10:53→21:37)
[2018-06-27 10:57] VITALS: BP 133/67
--- NOTE | 2018-06-27 11:30 | NUR ---
Dr. Bishop aware of patient's high blood sugars; only new order was to discontinue solumedrol at this time
[2018-06-27] MEDS ORDERED: MAG HYDROX/AL HYDROX/SIMETH ES 30 ML SUSP UDCUP PO SCH (13:45)
[2018-06-27 16:00] VITALS: BP 102/51
[2018-06-27 19:00] VITALS: BP 112/54
[2018-06-27] MEDS: INSULIN GLARGINE 100 UNITS/ML 10 ML VIAL SQ SCH (22:22)
[2018-06-27 23:00] VITALS: BP 133/61
[2018-06-28 03:00] VITALS: BP 100/50
[2018-06-28] MEDS: FUROSEMIDE 10 MG/ML 2ML VIAL IV SCH ×2 (04:23→17:17)
[2018-06-28] MEDS: APIXABAN 5 MG TABLET PO SCH ×2 (04:23→21:36)
[2018-06-28 04:25] LABS: BASOPHILS % (AUTO) 0.8 % (0.0-5.0); EOSINOPHILS % (AUTO) 1.4 % (0.0-8.0); HEMATOCRIT 36.4 % (36-48); LYMPHOCYTES % (AUTO) 13.2 % (21.0-51.0); MEAN CORPUSCULAR HEMOGLOBIN 31.4 pg (27.0-33.0); MEAN CORPUSCULAR VOLUME 92.1 fL (79-99); MONOCYTES % (AUTO) 9.4 % (3.0-13.0); NEUTROPHILS % (AUTO) 75.2 % (40.0-77.0); PLATELET COUNT (AUTO) 262 K/uL (130-400); RED BLOOD CELL COUNT(AUTO) 3.96 MIL/uL (4.00-5.50); RED CELL DISTRIBUTION WIDTH 13.8 % (11.0-15.5)
[2018-06-28 04:37] LABS: ABG BASE EXCESS 5.2 mmol/L (-2.0-3.0); ABG HCO3 31.5 mmol/L (21.0-28.0); ABG OXYGEN SATURATION 94.9 % (95.0-99.0); ABG PCO2 52 mmHg (32-45)
[2018-06-28 05:00] LABS: CREATININE 0.8 mg/dL (0.5-1.5); POTASSIUM 3.5 mmol/L (3.5-5.1)
[2018-06-28] MEDS: IPRATROPIUM/ALBUTEROL SULFATE 3 ML SOLUTION IH SCH ×4 (06:41→23:39)
[2018-06-28] MEDS: INSULIN HUMULIN R 100 UNIT/ML 3ML SQ SCH ×4 (06:58→21:57)
[2018-06-28] MEDS: INSULIN GLARGINE 100 UNITS/ML 10 ML VIAL SQ SCH ×2 (06:59→21:58)
[2018-06-28 07:49] VITALS: BP 119/71
[2018-06-28] MEDS: SPIRONOLACTONE 25 MG TAB PO SCH (09:38)
[2018-06-28] MEDS: LISINOPRIL 2.5 MG TABLET PO SCH ×2 (09:39→21:36)
[2018-06-28] MEDS: METOPROLOL TARTRATE 25 MG TAB PO SCH ×2 (09:39→21:36)
[2018-06-28] MEDS: PANTOPRAZOLE SODIUM 40 MG TABLET.DR PO SCH (09:39)
[2018-06-28] MEDS: HYDROCHLOROTHIAZIDE 25 MG TABLET PO SCH (09:39)
[2018-06-28] MEDS: AMLODIPINE BESYLATE 5 MG TAB PO SCH (09:39)
[2018-06-28] MEDS: OSELTAMIVIR PHOSPHATE 75 MG CAP PO SCH ×2 (09:39→21:36)
[2018-06-28 11:53] VITALS: BP 133/85
[2018-06-28 16:20] VITALS: BP 127/74
[2018-06-28] MEDS ORDERED: GUAIFENESIN-DM 200/20 MG 10 ML PO PRN (17:15)
[2018-06-28] MEDS: POTASSIUM CHLORIDE 20 MEQ ERTAB PO PRN ×2 (17:19→17:22)
[2018-06-28] MEDS ORDERED: GUAIFENESIN-DM 200/20 MG 10 ML ONE (17:20)
[2018-06-28 19:51] VITALS: BP 114/61
[2018-06-28 23:47] VITALS: BP 128/67
--- NOTE | 2018-06-29 | NUR ---
Pt.made aware that he is going to be on NPO post midnight and agreed ,he said MD had spoke to him that he is going to do an echo with a scope on his mouth to examine his heart . Addendum: 06/29/18 at 0639 by CHAY RUVALCABA RN RN Wrong entry.
[2018-06-29 04:00] VITALS: BP 117/60
[2018-06-29] MEDS: FUROSEMIDE 10 MG/ML 2ML VIAL IV SCH (04:28)
[2018-06-29] MEDS: INSULIN GLARGINE 100 UNITS/ML 10 ML VIAL SQ SCH (06:30)
[2018-06-29] MEDS: INSULIN HUMULIN R 100 UNIT/ML 3ML SQ SCH ×2 (06:31→11:43)
[2018-06-29] MEDS: IPRATROPIUM/ALBUTEROL SULFATE 3 ML SOLUTION IH SCH ×2 (07:02→11:47)
[2018-06-29 07:37] VITALS: BP 137/65
[2018-06-29] MEDS: METOPROLOL TARTRATE 25 MG TAB PO SCH (08:06)
[2018-06-29] MEDS: APIXABAN 5 MG TABLET PO SCH (08:07)
[2018-06-29] MEDS: HYDROCHLOROTHIAZIDE 25 MG TABLET PO SCH (08:07)
[2018-06-29] MEDS: AMLODIPINE BESYLATE 5 MG TAB PO SCH (08:07)
[2018-06-29] MEDS: PANTOPRAZOLE SODIUM 40 MG TABLET.DR PO SCH (08:07)
[2018-06-29] MEDS: SPIRONOLACTONE 25 MG TAB PO SCH (08:07)
[2018-06-29] MEDS: OSELTAMIVIR PHOSPHATE 75 MG CAP PO SCH (08:07)
[2018-06-29] MEDS: LISINOPRIL 2.5 MG TABLET PO SCH (08:08)
--- NOTE | 2018-06-29 11:30 | NUR ---
DR. LIBERTAD ALMAZAN HERE TO SEE PATIENT. PATIENT TOLD SHE FELT GOOD TO GO HOME TODAY. I ASKED PATIENT IF SHE USES OXYGEN AT HOME AND PATIENT CLARIFIED SHE USES A CPAP MACHINE AT BEDTIME ONLY TO SLEEP, BUT PATIENT DOES NOT USE OXYGEN AT ALL TIMES AT HOME.
[2018-06-29 11:37] VITALS: BP 102/49
--- NOTE | 2018-06-29 13:31 | NUR ---
DISCHARGE DISCHARGE TEACHING PROVIDED TO PATIENT REGARDING RX, F/U APPT, CHF, DISCHARGE INSTRUCTIONS. INFORMED PATIENT MD RECOMMENDED TO CONTINUE CPAP MACHINE USE AT HOME. PATIENT VERBALIZED UNDERSTANDING OF DISCHARGE TEACHING. REMOVED 20G IV FROM LEFT HAND, CATHETER INTACT. PATIENT REPORTS NO PAIN AND IS IN NO APPARENT DISTRESS. 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
== END 2018-06-29 14:45 | disposition home or self-care (01) | DRG 193 ==
LOC: EDH 21:18 → EDHIP 23:55 → 2DH 06-26 17:39
PROVIDERS: ADMIT Internal Medicine Infectious Disease; ATTEND Internal Medicine Infectious Disease
PROC: 5A09357 Assistance with Respiratory Ventilation, Less than 24 Consecutive Hours, Continuous Positive Airway Pressure (ICD-10-PCS; principal; 2018-06-27)
DX: J10.1 Influenza due to other identified influenza virus with other respiratory manifestations (principal); J96.21 Acute and chronic respiratory failure with hypoxia; I50.32 Chronic diastolic (congestive) heart failure; J44.1 Chronic obstructive pulmonary disease with (acute) exacerbation; J98.11 Atelectasis; Z68.42 Body mass index [BMI] 45.0-49.9, adult; I48.91 Unspecified atrial fibrillation; E11.65 Type 2 diabetes mellitus with hyperglycemia; E66.01 Morbid (severe) obesity due to excess calories; E78.5 Hyperlipidemia, unspecified; G47.33 Obstructive sleep apnea (adult) (pediatric); I11.0 Hypertensive heart disease with heart failure; M19.90 Unspecified osteoarthritis, unspecified site; Z83.3 Family history of diabetes mellitus; Z79.01 Long term (current) use of anticoagulants; Z99.81 Dependence on supplemental oxygen
CPT/HCPCS: 36415; 36600; 71045; 71275; 80048; 80053; 81001; 82550; 82803; 82948; 83735; 83874; 83880; 84100; 84484; 84702; 85025; 85378; 85610; 85730; 87804; 93005; 93306; 94640; 94660; 94664; 97039; G0378; J1200; J1650; J1815; J1940; J2543; J2920; J3475; Q9967

== ENCOUNTER 2019-05-13 19:45 | Emergency (ER) | payer MEDICARE ==
[~2019-05-13 19:45] MED LIST changes: +ALEN70TA10 PO; -ASPI-1181 PO; -DIGO125T87 PO; -GABA-531 PO; -GLIM2TAB3 PO; +LISI2.5T2 PO; +OMEP40CA13 PO; -OMEP40CA37 PO; +PREG75 PO; +SPIR50TA5 PO
[2019-05-13] MEDS ORDERED: FAMOTIDINE/PF 20 MG/2 ML VIAL IV ONE (20:03)
[2019-05-13] MEDS ORDERED: METOPROLOL TARTRATE 1 MG/ML 5ML VIAL IV ONE (20:03)
[2019-05-13] MEDS ORDERED: SODIUM CHLORIDE 0.9% 500ML 500 ML IV ONE (20:04)
[2019-05-13 20:43] LABS: BASOPHILS % (AUTO) 0.3 % (0.0-5.0); EOSINOPHILS % (AUTO) 0.3 % (0.0-8.0); LYMPHOCYTES % (AUTO) 6.7 % (21.0-51.0); MEAN CORPUSCULAR HEMOGLOBIN 28.6 pg (27.0-33.0); MEAN CORPUSCULAR HGB CONC 32.7 g/dL (32.0-36.0); MEAN CORPUSCULAR VOLUME 87.3 fL (79-99); MONOCYTES % (AUTO) 4.8 % (3.0-13.0); NEUTROPHILS % (AUTO) 87.6 % (40.0-77.0); PLATELET COUNT (AUTO) 314 K/uL (130-400); RED BLOOD CELL COUNT(AUTO) 5.04 MIL/uL (4.00-5.50); RED CELL DISTRIBUTION WIDTH 12.9 % (11.0-15.5); WHITE BLOOD COUNT (AUTO) 14.9 K/uL (4.8-10.8)
[2019-05-13] MEDS ORDERED: DEXTROSE 50%-WATER 50 ML DISP.SYRIN IV ONE (20:44)
[2019-05-13 20:56] LABS: POTASSIUM 3.9 mmol/L (3.5-5.1)
[2019-05-13 20:57] LABS: INR 0.9 (0.85-1.15); PARTIAL THROMBOPLASTIN TIME 26.8 SEC (26.3-35.5); PROTHROMBIN TIME 9.8 SEC (9.6-11.6)
[2019-05-13 20:58] LABS: ALBUMIN 3.6 g/dL (3.5-5.0); BILIRUBIN,TOTAL 0.2 mg/dL (0.2-1.0); TOTAL PROTEIN, SERUM 7.9 g/dL (6.0-8.3)
[2019-05-13] MEDS ORDERED: SODIUM BICARB 50MEQ 50ML VIAL ONE (22:22)
== END 2019-05-14 | disposition home or self-care (01) ==
LOC: EDH 19:45
DX: T78.49XA Other allergy, initial encounter (principal); I48.91 Unspecified atrial fibrillation; E11.9 Type 2 diabetes mellitus without complications; I10 Essential (primary) hypertension; I25.10 Atherosclerotic heart disease of native coronary artery without angina pectoris; E78.5 Hyperlipidemia, unspecified; G47.30 Sleep apnea, unspecified; X58.XXXA Exposure to other specified factors, initial encounter
CPT/HCPCS: 36415; 71045; 80053; 82550; 83880; 84484; 85025; 85610; 85730; 93005; 96374; 96375; 99285; J3490 ×3; J7040; J7070

== ENCOUNTER 2019-12-06 06:35 | Day surgery (SDC) | payer MEDICARE ==
[~2019-12-06] VITALS: Ht 157.5 cm; Wt 115.7 kg
[~2019-12-06 06:35] MED LIST changes: -ALEN70TA10 PO; +ALEN70TA69 PO; +AMLO-258 PO; -AMLO10TA7 PO; +SODIUM CHLORIDE 0.9% 1000ML 1,000 ML IV ONE
[2019-12-06 09:26] VITALS: BP 115/61
[2019-12-06] MEDS ORDERED: HYDR12.54 PO (09:45)
[2019-12-06] MEDS ORDERED: CLON0.1T PO (09:45)
[2019-12-06] MEDS ORDERED: EZET10TA48 PO (09:45)
[2019-12-06] MEDS ORDERED: CHOL2000 PO (09:45)
[2019-12-06] MEDS ORDERED: EMPA1TAB7 PO (09:45)
[2019-12-06] MEDS ORDERED: LIDOCAINE HCL 2% 20ML ONE (10:00)
[2019-12-06] MEDS ORDERED: PROPOFOL 10 MG/ML 20ML VIAL IV ONE (10:00)
[2019-12-06 10:40] VITALS: BP 121/73
[2019-12-06 10:45] VITALS: BP 117/64
[2019-12-06 10:50] VITALS: BP 115/66
== END 2019-12-06 11:15 | disposition home or self-care (01) ==
LOC: ENDO 06:35 → DAH 06:35 → ENDO 11:15
PROVIDERS: ATTEND Internal Medicine
DX: R14.0 Abdominal distension (gaseous) (principal); K63.5 Polyp of colon; Z86.010 Personal history of colon polyps; I10 Essential (primary) hypertension; E11.9 Type 2 diabetes mellitus without complications; K21.9 Gastro-esophageal reflux disease without esophagitis; E66.9 Obesity, unspecified; M19.90 Unspecified osteoarthritis, unspecified site; Z20.828 Contact with and (suspected) exposure to other viral communicable diseases
CPT/HCPCS: 45380; 45381; 45385; 82948 ×2; 88305; 93005; A4215; A4221; A4222; A4223; A4606; A4620; A4657; C9803; J2704; J3490; J7030; U0003; 36415

== ENCOUNTER 2020-02-14 06:18 | Day surgery (SDC) | payer MEDICARE ==
[~2020-02-14] VITALS: Ht 152.4 cm; Wt 119.7 kg
[~2020-02-14 06:18] MED LIST changes: +CHOL2000 PO; -CHOL200012 PO; +CLON0.1T PO; +EMPA1TAB7 PO; +EZET10TA48 PO; -FURO40TA5 PO; -HYDR12.530 PO; +HYDR12.54 PO; -LINA1TAB5 PO; -LISI2.5T2 PO; -METH250T3 PO; -OMEP40CA13 PO; -PREG75 PO; -SPIR50TA5 PO
[2020-02-14 06:50] VITALS: BP 163/69
[2020-02-14] MEDS ORDERED: LISI2.5T2 PO (06:57)
[2020-02-14] MEDS ORDERED: MAGN250T2 PO (06:57)
[2020-02-14] MEDS ORDERED: EXEN2PEN SQ (06:57)
[2020-02-14] MEDS ORDERED: PANT20TA18 PO (06:57)
[2020-02-14] MEDS ORDERED: PROPOFOL 10 MG/ML 20ML VIAL IV ONE (07:34)
[2020-02-14] MEDS ORDERED: LIDOCAINE HCL 1% 20 ML VIAL ONE (07:34)
[2020-02-14] MEDS ORDERED: EPHEDRINE SULFATE 50 MG/ML AMPULE ONE (07:50)
[2020-02-14 08:02] VITALS: BP 111/44
[2020-02-14 08:07] VITALS: BP 110/50
[2020-02-14 08:14] VITALS: BP 120/55
[2020-02-14 08:20] VITALS: BP 120/55
== END 2020-02-14 08:30 | disposition home or self-care (01) ==
LOC: ENDO 06:18 → DAH 06:18 → ENDO 08:30
PROVIDERS: ATTEND Internal Medicine Gastroenterology
DX: R14.0 Abdominal distension (gaseous) (principal); Z20.828 Contact with and (suspected) exposure to other viral communicable diseases; D12.2 Benign neoplasm of ascending colon; D12.3 Benign neoplasm of transverse colon; I10 Essential (primary) hypertension; K21.9 Gastro-esophageal reflux disease without esophagitis; E11.9 Type 2 diabetes mellitus without complications; E66.01 Morbid (severe) obesity due to excess calories; E78.00 Pure hypercholesterolemia, unspecified; M19.90 Unspecified osteoarthritis, unspecified site; Z68.43 Body mass index [BMI] 50.0-59.9, adult; Z86.010 Personal history of colon polyps; Z79.01 Long term (current) use of anticoagulants; Z79.899 Other long term (current) drug therapy
CPT/HCPCS: 45381; 45385; 82948 ×2; 93005; A4215 ×2; A4221; A4222; A4223; A4606; A4620; A4657 ×2; A4663; C9803; J2704; J3490; J7030; U0003

== ENCOUNTER → 2020-05-22 | Outpatient (CLI) | payer MEDICARE ==
[~2020-05-22] VITALS: Ht 160 cm; Wt 116.6 kg
[~2020-05-22] MED LIST changes: -ALEN70TA69 PO; +ALEN70TA80 PO; +EXEN2PEN SQ; +LISI2.5T2 PO; +MAGN250T2 PO; +PANT20TA18 PO; +REGADENOSON 0.4 MG/5 ML PF SYG IVP SCH; -SODIUM CHLORIDE 0.9% 1000ML 1,000 ML IV ONE
== END | disposition home or self-care (01) ==
LOC: SHCH 08:29
PROVIDERS: ATTEND Internal Medicine Cardiovascular Disease
DX: I25.119 Atherosclerotic heart disease of native coronary artery with unspecified angina pectoris (principal)
CPT/HCPCS: 78452; 93017; 96374; A9500 ×2; J2785

== ENCOUNTER → 2023-01-27 | Outpatient (CLI) | payer OTHER, MEDICARE ==
[~2023-01-27] MED LIST changes: -DRON400T2 PO; +DRON400T7 PO; +LISI2.5T13 PO; -LISI2.5T2 PO; -MAGN250T2 PO; +MAGN250T35 PO; -REGADENOSON 0.4 MG/5 ML PF SYG IVP SCH
[2023-01-27 16:48] LABS: POTASSIUM 5.2 mmol/L (3.5-5.1)
== END | disposition home or self-care (01) ==
LOC: LAB 15:36
PROVIDERS: ATTEND Internal Medicine Cardiovascular Disease
DX: I10 Essential (primary) hypertension (principal); I25.10 Atherosclerotic heart disease of native coronary artery without angina pectoris
CPT/HCPCS: 36415; 80048; 83880

== ENCOUNTER → 2023-02-25 | Outpatient (CLI) | payer OTHER, MEDICARE ==
[2023-02-25 12:31] LABS: CREATININE 1.3 mg/dL (0.5-1.5); POTASSIUM 4.9 mmol/L (3.5-5.1)
== END | disposition home or self-care (01) ==
LOC: LAB 09:03
PROVIDERS: ATTEND Internal Medicine Cardiovascular Disease
DX: I50.32 Chronic diastolic (congestive) heart failure (principal); D68.59 Other primary thrombophilia; I48.19 Other persistent atrial fibrillation
CPT/HCPCS: 36415; 80048; 83880